=== PATIENT | female | born 2000 | race Caucasian/White ===

== ENCOUNTER 2020-03-03 09:21 | Emergency (ER) | payer OTHER, SELFPAY ==
--- NOTE | ~2020-03-03 | XR_ITS ---
EXAMINATION: XR sacrum coccyx min 2V DATE: 03/03/2020 10:15 INDICATION: Coccyx injury. TECHNIQUE: 3 views of sacrum and coccyx were obtained. COMPARISON: None. FINDINGS: There is an oblique fracture of the inferior tip of the sacrum. The inferior fracture fragm ent demonstrates 14 degrees anterior angulation. The sacroiliac joints are normal. IMPRESSION: 1. Oblique fracture of the inferior tip of the sacrum. Reviewed, dictated and finalized at location B. [facility]
[2020-03-03 09:30] VITALS: BP 106/84; PULSE 80; RESP 20; TEMP 37.1; O2SAT 98
--- NOTE | 2020-03-03 10:18 | ED.BACK ---
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 The patient rates her pain about a 6/10 occurred 2 days ago, currently there is no numbness or tingling no saddle pain or tenderness no dysuria no diarrhea or constipation no numbness or tingling or rid radiculopathy to her lower extremities. MD elicited complaint: back pain Onset (ago): day(s) Timing: intermittent Severity: moderate Pain scale (0-10): 6 Similar Symptoms Previously: No Quality: aching Location: sacrum Radiation: none Exacerbating factors: none Context: while lifting, turning/twisting and bending Associated symptoms: denies other symptoms Related Data Home Medications Medication Instructions Recorded Confirmed bupropion HCl 150 mg PO BID 03/03/20 03/03/20 Allergies Allergy/AdvReac Type Severity Reaction Status Date / Time No Known Allergies Allergy Unverified 04/02/17 13:56 Review of Systems Review of Systems: All systems reviewed & are unremarkable except as noted in HPI and below PMFSH Past Medical History Medical History Patient denies medical problems Exam Const: General: no acute distress and alert Orientation/consciousness: patient oriented x3 HENMT: Head: normal to inspection Eyes: Conjunctivae: conjunctivae normal Pupils: Equal, round and reactive pupils present EOM: EOMs intact bilaterally Chest: Chest palpation & inspection: normal inspection of the chest Resp: Effort & Inspection: normal respiratory effort Cardio: Rate: regular rate Rhythm: regular rhythm GI: Auscultation: normal bowel sounds : General: Yes no CVA tenderness Back/Spine/Pelvis: Back: no CVA tenderness Neuro: General: patient oriented x3, moves all extremities, no meningeal signs and no focal motor deficits Extrem: Other: tenderness in the sacral area with palpation Psych: Affect: normal affect Course Course Emergency Course: discussed with patient x-ray results which show an oblique fracture at the tip of the sacrum, suggested that the patient can take naproxen without fear of any narcotic addiction issues. And the patient also requests a note off of work for 2 to 3 days. Vital Signs Vital signs: Vital Signs Temperature 37.1 C 03/03/20 09:30 Pulse Rate 80 03/03/20 09:30 Respiratory Rate 20 03/03/20 09:30 Blood Pressure 106/84 03/03/20 09:30 Pulse Oximetry 98 03/03/20 09:30 Temperature 37.1 C 03/03/20 09:30 Pulse Rate 80 03/03/20 09:30 Respiratory Rate 20 03/03/20 09:30 Blood Pressure 106/84 03/03/20 09:30 Pulse Oximetry 98 03/03/20 09:30 MDM - Back Pain/Injury Lab Data Labs: Lab Results 03/03/20 Range/Units 09:40 Urine Test Pending Critical Care Time Critical Care Time Critical Care Time: No Discharge Plan Discharge Clinical Impression: Closed sacral fracture Qualifiers: Encounter type: initial encounter Zone of sacrum fracture: zone I of sacrum Fracture alignment: nondisplaced Qualified Code(s): S32.110A - Nondisplaced Zone I fracture of sacrum, initial encounter for closed fracture Patient Disposition: Home, Self-Care Condition: Stable Instructions: Antibiotic Form, Sacral Fracture (ED) Additional Instructions: can take [id number] ibuprofen as needed for pain, follow-up primary care physicians if symptoms persist or worsen. Prescriptions: No Action bupropion HCl 150 mg tablet sustained-release 12 hr 150 mg PO BID RF: 0 Follow-up/Referrals: UNKNOWN,DOCTOR [Primary Care Provider] -
[2020-03-03 10:38] VITALS: BP 110/75; PULSE 88; RESP 20; O2SAT 99
[2020-03-03 11:39] LABS: Pregnancy On Board Control Positive; Urine Pregnancy Test Negative
== END 2020-03-03 10:42 | disposition home or self-care (01) ==
PROVIDERS: Emergency Provider Emergency Medicine
DX: S32.110A Nondisplaced Zone I fracture of sacrum, initial encounter for closed fracture (principal); W19.XXXA Unspecified fall, initial encounter
CPT/HCPCS: 72220; 81025; 99283